=== PATIENT | male | born 1990 | race African-American/Black ===

== ENCOUNTER 2018-08-13 21:50 | Emergency (ER) | payer BC ==
[~2018-08-13] VITALS: Ht 175.3 cm; Wt 122.5 kg
[2018-08-13] MEDS ORDERED: CLARITIN10 M2 PO (21:59)
[2018-08-13] MEDS ORDERED: AMOXICILLIN 50500 MG PO (21:59)
[2018-08-13] MEDS ORDERED: CEFDINIR300 MG PO (23:01)
[2018-08-13 23:20] VITALS: BP 136/88
== END 2018-08-13 23:20 | disposition home or self-care (01) ==
LOC: ER 21:50
DX: J06.9 Acute upper respiratory infection, unspecified (principal); H66.93 Otitis media, unspecified, bilateral

== ENCOUNTER 2019-07-25 21:02 | Emergency (ER) | payer OTHER ==
[~2019-07-25] VITALS: Ht 175.3 cm; Wt 127.0 kg
[~2019-07-25 21:02] MED LIST: AMOXICILLIN 50500 MG PO; CEFDINIR300 MG PO; CLARITIN10 M2 PO
[2019-07-25 23:17] LABS: ABSOLUTE NEUTROPHILS 6.5 thou/uL (1.4-8.2); BASOPHILS 0.3 % (0.0-2.0); EOSINOPHILS 0.3 % (0.0-3.0); HEMATOCRIT 48.4 % (42.0-52.0); HEMOGLOBIN 15.3 gm/dL (14.0-18.0); LYMPHOCYTES 13.3 % (24.0-44.0); MCH 23.8 pg (26.0-34.0); MCHC 31.6 g/dL (28.0-37.0); MCV 75.1 fL (80.0-100.0); MONOCYTES 11.2 % (1.0-8.0); PLATELET COUNT 399 thou/uL (150-400); POLYS 74.9 % (36.0-66.0); RBC 6.44 mil/uL (4.50-6.00); RDW 14.4 % (10.5-14.5); WBC 8.7 thou/uL (4.0-11.0)
[2019-07-25 23:20] LABS: CALCIUM 9.1 mg/dL (8.5-10.1); CREATININE 1.5 mg/dL (0.7-1.3); POTASSIUM 3.6 mmol/L (3.5-5.1)
[2019-07-25 23:26] LABS: ALBUMIN 4.6 g/dL (3.4-5.0); TOTAL BILIRUBIN 1.1 mg/dL (<0.1-1.0); TOTAL PROTEIN 8.6 g/dL (6.4-8.2)
[2019-07-25] MEDS ORDERED: NOHOMEMEDICATIONS (23:45)
[2019-07-25] MEDS ORDERED: ZOFRAN ODT4 MG PO (23:58)
[2019-07-26 00:10] VITALS: BP 105/44
== END 2019-07-26 00:14 | disposition home or self-care (01) ==
LOC: ER 21:02
PROVIDERS: Emergency Medicine
DX: R19.7 Diarrhea, unspecified (principal); R11.2 Nausea with vomiting, unspecified